=== PATIENT | female | born 1955 | race Caucasian/White ===

== ENCOUNTER 2020-05-13 11:20 | Inpatient (IN) ==
[2020-05-13 12:28] LABS: Ethanol < 10 mg/dL (Less than 10)
[2020-05-13 14:54] LABS: Thyroid Stimulating Hormone 1.397 mcIU/mL (0.340-5.600)
[2020-05-13] MEDS ORDERED: cephALEXin 500 MG CAPSULE PO ONE (15:03)
[2020-05-13] MEDS ORDERED: *HR* LORazepam 1 MG TABLET PO PRN (15:13)
[2020-05-13] MEDS ORDERED: haloperidoL 5 MG TABLET PO PRN (15:13)
[2020-05-13] MEDS ORDERED: *HR* LORazepam 2 MG/ML VIAL IM PRN (15:13)
[2020-05-13] MEDS ORDERED: MOM Conc 10 ML UD.LIQ PO PRN (15:13)
[2020-05-13] MEDS ORDERED: Mag Hydrox/Al Hydrox/Simeth 30 ML UDC PO PRN (15:13)
[2020-05-13] MEDS ORDERED: Haloperidol Lactate 5 MG/ML VIAL IM PRN (15:13)
[2020-05-13] MEDS: traZODone 50 MG TABLET PO PRN (20:53)
[2020-05-13] MEDS: hydrOXYzine pamoate 25 MG CAPSULE PO PRN (20:53)
[2020-05-13] MEDS: cephALEXin 500 MG CAPSULE PO SCH (20:53)
[2020-05-14] MEDS: Acetaminophen 325 MG TABLET PO PRN (15:09)
[2020-05-14] MEDS: cephALEXin 500 MG CAPSULE PO SCH ×2 (16:03→20:21)
[2020-05-14] MEDS: hydrOXYzine pamoate 25 MG CAPSULE PO PRN (20:21)
[2020-05-14] MEDS: traZODone 50 MG TABLET PO PRN (20:22)
[2020-05-15] MEDS: cephALEXin 500 MG CAPSULE PO SCH ×2 (09:31→20:56)
[2020-05-15] MEDS: Acetaminophen 325 MG TABLET PO PRN (14:09)
[2020-05-15] MEDS: traZODone 50 MG TABLET PO PRN (20:56)
[2020-05-16] MEDS: cephALEXin 500 MG CAPSULE PO SCH (09:03)
[2020-05-16 09:57] VITALS: BP 124/71
== END 2020-05-16 11:35 | disposition home or self-care (01) | DRG 885 ==
LOC: EMEROOARM 11:20 → 1ANU 15:10
PROVIDERS: ADMIT Psychiatry & Neurology Psychiatry; ATTEND Psychiatry & Neurology Psychiatry